=== PATIENT | female | born 1975 | race Caucasian/White ===

== ENCOUNTER → 2020-12-12 10:54 | Outpatient (CLI) | payer BC, SELFPAY ==
[2020-11-06 16:06] VITALS: BMI 55.4
--- NOTE | 2020-12-12 11:02 | ECHOCS_ITS ---
Reason For Study: ARRHYTHMIA Procedure This was a 2D Doppler, Color Flow transthoracic echocardiogram. The study was technically difficult. Due to body habitus. Contrast injection was performed. Exam performed in department. Left Ventricle Normal LV size. Moderate concentric left ventricular hypertrophy. Left ventricular systolic function is normal. The estimated ejection fraction is 65 %. Stage 1 diastolic dysfunction. No regional wall motion abnormalities noted. Right Ventricle Normal RV size. Normal systolic function. Atria Normal left atrium. Normal right atrium. Mitral Valve Mitral valve not well visualized. Tricuspid Valve The tricuspid valve is not well visualized. Aortic Valve The aortic valve is not well visualized. Pulmonic Valve The pulmonic valve is not well visualized. Great Vessels Normal aortic root. Pericardium/Pleural No pericardial effusion. Medication 22 gauge I.V. with prn adaptor inserted into right arm. Diluted definity 2.0ml given slow IV push to enhance endocardial definition. MMode/2D Measurements & Calculations LVIDd: 4.7 cm IVSd: 1.4 cm Ao root diam: 2.8 cm LVIDs: 3.3 cm LVPWd: 1.4 cm RVDd: 3.1 cm FS: 30.4 % LAV(MOD-bp): 69.8 ml LVAd ap4: 33.3 cm2 SV(MOD-sp4): 74.0 ml LAV(MOD-bp) Indexed: 28.4 ml/m2 EDV(MOD-sp4): 105.2 ml LAV(MOD-sp2): 64.4 ml EDV(sp4-el): 110.4 ml LAV(MOD-sp4): 70.4 ml LVAs ap4: 16.4 cm2 ESV(MOD-sp4): 31.2 ml ESV(sp4-el): 32.0 ml EF(MOD-sp4): 70.3 % EF(sp4-el): 71.0 % SV(sp4-el): 78.4 ml LA A4 area: 22.4 cm2 LA dimension(2D): 4.2 cm RA A4 area: 21.4 cm2 Time Measurements MV dec time: 0.19 sec Doppler Measurements & Calculations MV E max castillo: 80.5 cm/sec Lat Peak E' Castillo: 10.7 cm/sec Med Peak E' Castillo: 8.8 cm/sec MV A max castillo: 97.6 cm/sec E/E' lat: 7.5 E/E' med: 9.2 MV E/A: 0.82 Ao V2 max: 168.2 cm/sec LV V1 max: 131.6 cm/sec PA V2 max: 121.4 cm/sec Ao max P.3 mmHg LV V1 max P.9 mmHg Interpretation Summary Normal LV size. Left ventricular systolic function is normal. The estimated ejection fraction is 65 %. Stage 1 diastolic dysfunction. Moderate concentric left ventricular hypertrophy. Contrast injection was performed. Ordering Physician: Lee Guardado Referring Physician: Jeffry Marcos Performed By: Luzma Rees, ALEAH, RVT
== END ==
PROVIDERS: PCP Family Medicine; Referring Provider Internal Medicine Cardiovascular Disease; Visit Provider Internal Medicine Cardiovascular Disease
DX: I47.1 Supraventricular tachycardia (principal)
CPT/HCPCS: 93306; Q9957; A4216; C8929

== ENCOUNTER → 2021-09-29 08:00 | Outpatient (CLI) | payer BC, SELFPAY ==
--- NOTE | 2021-09-29 08:00 | FLU_PTH ---
PATIENT: GERI MARSH LOC: [facility] U#:[id number] AGE/SX: 50/F ROOM: RE09/29/[address]: Dr. Puja Napier MD : 1975 BED: DIS: SPEC #: [id number] RECD: 09/30/21 11:50 STATUS: ISABELLE QUE #: [id number] ALEA: 09/29/21 08:[address]: Puja Napier DEPT: CYTOLOGY RECD BY: Alba Higuera ENTERED: 09/30/21 13:20 SP TYPE: Fluid OTHR DR: Dr. Jeffry Marcos MD Tissues: A - Thyroid gland, NOS B - Thyroid gland, NOS Procedures: Special Stain Group II Surgery Specimen Level IV Cytospin Fluid Cytology Other HEADER OPERATION: Ultrasound-guided fine needle aspiration right thyroid PRE-OP DIAGNOSIS: Right thyroid nodule TISSUE SUBMITTED: A ? FNA, right thyroid nodule fluid, B ? FNA, right thyroid nodule x8 slides DIAGNOSIS CYTOLOGY A. Right thyroid nodule fluid, ultrasound-guided FNA (cytospin and cell block): Bloody specimen. See comment. B. Right thyroid nodule, FNA (smears): Consistent with benign follicular nodule. See comment. CORA:pedro pablo 10/01/2021 COMMENT A. Follicular cells are not seen. B. The specimen is paucicellular, however, meets the minimal criteria for adequacy. Correlation with clinical, radiologic findings and appropriate follow up are necessary. CYTOLOGY STUDY Slides are reviewed. CYTOLOGY GROSS A - Received is 30 ml of brown cloudy fluid labeled with the patient's name and and designated per the requisition as right thyroid nodule. Submitted for cytology preparation including cell block. B - Received are eight smears labeled with the patient's name and designated per the requisition as right thyroid nodule. Submitted for staining. / pedro pablo 09/30/2021 TC:5 CPT: 44700, 23524, 22287
== END ==
PROVIDERS: PCP Family Medicine; Visit Provider Surgery
DX: E04.1 Nontoxic single thyroid nodule (principal)
CPT/HCPCS: 88108; 88161; 88305; 88313

== ENCOUNTER 2021-12-10 | Emergency (ER) | payer BC, SELFPAY ==
[2021-12-10 00:01] VITALS: BP 136/77; PULSE 78; RESP 19; TEMP 36.1; O2SAT 96; BMI 44.4
--- NOTE | 2021-12-10 00:11 | EDS_ITS ---
HPI History of Present Illness Chief Complaint: Allergic Reaction Narrative Narrative: Patient presents via EMS with allergic reaction. She states she is nauseated and has hives all over her body. Her symptoms began approximately an hour ago. She has eaten [place] food at 6:30 PM, almost 5 hours ago, but had eaten this previously. This evening she had pepper steak. She has previous allergies to lisinopril and shellfish, and aloe. She denies any new lotions or detergents. No throat closing or difficulty swallowing or breathing. She states the rash began on the back of her thighs and spread to her trunk. She took 2 Benadryl and 2 Tylenol, and called EMS because she lives at home alone. She states she feels nauseated once again and feels like her skin is burning and itchy all over. [facility] Medical History (Updated 12/10/21 @ 01:53 by Reid Hicks MD) Essential (primary) hypertension Morbid obesity Obstructive sleep apnea Type 2 diabetes mellitus Home Medications Lactobacillus rhamnosus GG 10 billion cell capsule 1 cap PO DAILY 10/28/20 [History Last Taken Unknown] apple cider vinegar 500 mg tablet 1,500 mg PO BID tab 10/28/20 [History Last Taken Unknown] glimepiride 2 mg tablet 2 mg PO QAM 10/28/20 [History Last Taken Unknown] krill oil 500 mg capsule 500 mg PO DAILY cap 10/28/20 [History Last Taken Unknown] levonorgestrel 20 mcg/24 hours (7 yrs) 52 mg intrauterine device 1 device INTRA- UTER ONCE 10/28/20 [History Last Taken Unknown] multivitamin 1 tab PO DAILY 10/28/20 [History Last Taken Unknown] olmesartan 40 mg tablet 40 mg PO DAILY 10/28/20 [History Last Taken Unknown] pioglitazone 30 mg tablet 30 mg PO DAILY 10/28/20 [History Last Taken Unknown] turmeric root extract 500 mg capsule 1,000 mg PO DAILY cap 10/28/20 [History Last Taken Unknown] cartilage 40 mg-collagen 12 mg-hyaluronic ac 3.3 mg-vit C 30 mg tablet tab PO 11/06/20 [History Last Taken Unknown] metoprolol succinate 50 mg tablet,extended release 24 hr 50 mg PO DAILY #90 tab 07/22/21 [Rx Last Taken Unknown] amiloride 5 mg tablet 5 mg PO BID tab 09/12/21 [History Last Taken Unknown] famotidine [Pepcid] 20 mg PO DAILY #14 tab 12/10/21 [Rx Last Taken Unknown] pantoprazole 40 mg PO DAILY 12/10/21 [History Last Taken Unknown] prednisone 40 mg PO DAILY #10 tab 12/10/21 [Rx Last Taken Unknown] Allergy/AdvReac Type Severity Reaction Status Date / Time aloe Allergy rash Verified 02/05/21 11:34 lisinopril Allergy swelling Verified 02/05/21 11:34 shellfish derived Allergy Hives Verified 12/10/21 00:05 Family History Father Hypertension Diabetes Grandfather Myocardial infarction maternal CVA (cerebral vascular accident) maternal Grandfather Myocardial infarction paternal CVA (cerebral vascular accident) Surgical History History of cholecystectomy Social History Smoking Status: Never smoker ROS ROS ED ROS Narrative Constitutional: No fever, no chills. HEENT: No sore throat. No neck pain. No loss of vision. No rhinorrhea. No difficulty swallowing. No throat closing. No tongue swelling. Cardiovascular: No chest pain. No palpitations. No pedal edema. Respiratory: No cough, no shortness of breath. Abdominal: No abdominal pain. No nausea. No vomiting. Genitourinary: No dysuria. No hematuria. Musculoskeletal: No myalgias. No arthralgias. Neurologic: No headaches. No dizziness. No lightheadedness. Skin: Hives all over her body. Mild change in color. Generalized pruritus. Psychiatric: No depression. No anxiety. EXAM Physical Exam Narrative Exam Narrative: Afebrile. Vital signs noted. HEENT: Normocephalic. Atraumatic. PERRL, EOMI. Neck soft and supple. No point tenderness or step off. Airway patent. No drooling or trismus. No angioedema of tongue or lips. Cardiovascular: Regular rate and rhythm. No murmurs, rubs, or gallops appreciated. Respiratory: No tachypnea. Lungs clear to auscultation bilaterally. Gastrointestinal: Abdomen soft, nontender, with normoactive bowel sounds. No rebound or guarding. Neurological: Awake. Alert. Nonfocal, nonlateralizing. Skin: Diffuse hives on chest with mild erythema of hands and torso. Normal color. No pallor. Musculoskeletal: No pedal edema. Full range of motion extremities. Const Vital Signs: 12/10/21 00:01 Temperature 96.9 F L Temperature Source Temporal Pulse Rate 78 Respiratory Rate 19 H Blood Pressure 136/77 H Blood Pressure Mean 96 Pulse Ox 96 Oxygen Delivery Method Room Air MDM MDM MDM Narrative Medical decision making narrative: As the patient has already taken 50 mg of Benadryl orally she was placed on a clinical research monitor and will be given Pepcid 20 mg intravenously and Solu-Medrol 125 mg intravenously. Upon repeat examination at approximately 0 140, she is improved. She states her nausea is markedly improved. She is less erythematous and less pruritic. The hives on her trunk are also improving. I feel she be discharged safely home with follow-up. She was given a prescription for prednisone burst of 40 mg for the next 5 days. As she is diabetic, she is aware that this can increase her blood sugars, and states that she has taken prednisone previously. Additionally, she was given a prescription for Pepcid 20 mg as an additional histamine ebony. She will continue Benadryl at home. Return instructions to the emergency department were reviewed. She was told to follow-up with her primary care physician for probable referral to an memory care director. Disposition is discharged home in stable condition. Discharge Plan Triage Chief Complaint: Allergic Reaction ED Provider: Reid Hicks Dx/Rx/DC Orders Clinical Impression: Hives Instructions: ED Hives (Adult) Prescriptions: New prednisone 20 mg tablet 40 mg PO DAILY Qty: 10 RF: 0 famotidine [Pepcid] 20 mg tablet 20 mg PO DAILY Qty: 14 RF: 0 No Action [id number] ac-C 40-12-3.3-30 mg tablet PO RF: 0 olmesartan 40 mg tablet 40 mg PO DAILY RF: 0 krill oil 500 mg capsule 500 mg PO DAILY RF: 0 apple cider vinegar 500 mg tablet 500 mg tablet 1,500 mg PO BID RF: 0 glimepiride 2 mg tablet 2 mg PO QAM RF: 0 pioglitazone [Actos] 30 mg tablet 30 mg PO DAILY RF: 0 multivitamin Tablet 1 tab PO DAILY RF: 0 turmeric root extract 500 mg capsule 1,000 mg PO DAILY RF: 0 Culturelle 10 billion cell capsule 1 cap PO DAILY RF: 0 levonorgestrel 20 mcg/24 hours (6 yrs) 52 mg intrauterine device 20 mcg/24 hours (6 yrs) 52 mg intrauterine device 1 device INTRA-UTER ONCE RF: 0 pantoprazole 40 mg tablet,delayed release (DR/EC) 40 mg PO DAILY RF: 0 metoprolol succinate [Toprol XL] 50 mg tablet extended release 24 hr 50 mg PO DAILY Qty: 90 RF: 3 Hold Instructions: on hold per PCP see clinical note amiloride 5 mg tablet 5 mg PO BID RF: 0 Primary Care Provider: Jeffry Marcos Referrals: Jeffry Marcos MD [Primary Care Provider] - 1-2 Days if not improving Disposition Disposition: Home, Self Care
[2021-12-10] MEDS: MethylPREDNISolone 125 MG/2 ML Vial IV (00:18)
[2021-12-10] MEDS: Famotidine 200 MG/20 ML MDV 20 MG in 0.9% Normal Saline (Pres. free 8 ML 300 MG IV (00:18)
[2021-12-10 06:17] VITALS: BP 124/78; PULSE 72; RESP 18; O2SAT 100
== END 2021-12-10 06:18 | disposition home or self-care (01) ==
PROVIDERS: Emergency Provider Emergency Medicine; PCP Family Medicine; Visit Provider Emergency Medicine
DX: L50.9 Urticaria, unspecified (principal); T78.40XA Allergy, unspecified, initial encounter; I10 Essential (primary) hypertension; G47.33 Obstructive sleep apnea (adult) (pediatric); X58.XXXA Exposure to other specified factors, initial encounter; Z79.899 Other long term (current) drug therapy
CPT/HCPCS: 96374; 99285; A4216; J3490